=== PATIENT | female | born 1965 | race Caucasian/White ===

== ENCOUNTER → 2017-01-02 | Outpatient (CLI) | payer BC | END | disposition home or self-care (01) | LOC: C.PAPS 11:19 | PROVIDERS: ATTEND Obstetrics & Gynecology | DX: Z01.419 Encounter for gynecological examination (general) (routine) without abnormal findings (principal) ==

== ENCOUNTER → 2017-04-30 | Outpatient (CLI) | payer BC | END | disposition home or self-care (01) | LOC: C.PATHSPEC 16:33 | PROVIDERS: ATTEND Dermatology | DX: L98.9 Disorder of the skin and subcutaneous tissue, unspecified (principal) ==

== ENCOUNTER → 2018-02-12 | Outpatient (CLI) | payer OTHER | END | disposition home or self-care (01) | LOC: C.LABSPEC 16:37 | PROVIDERS: ATTEND Physician Assistant | DX: R39.9 Unspecified symptoms and signs involving the genitourinary system (principal) ==

== ENCOUNTER 2025-09-24 08:47 | Observation (INO) ==
--- NOTE | 2025-09-23 11:07 | Anesthesiology Consultation ---
Date of Service September 23, 2025 Assessment & Plan (1) Encounter for pre-operative examination: Infectious disease screening: Per assessment on 09/23/25- No known recent infectious disease contacts or current infectious disease symptoms. Chart Review Chart Review: Acceptable Risk for Surgery and Patient NOT seen in Pre Admission Testing History Surgery Operation Date: 09/24/25 10:00 Proposed Procedures p Laparoscopic Cholecystectomy - Curt Malloy DO, FACS Height/Weight Height: 5 ft 6.5 in Weight: 77.111 kg Allergies Allergy/AdvReac Type Severity Reaction Status Date / Time No Known Drug Allergies Allergy Verified 09/24/25 09:02 Medications Home Medications Medication Instructions Recorded Confirmed Last Taken cholecalciferol (vitamin D3) 25 1 cap PO BID 09/30/18 09/24/25 09/22/25 18:00 mcg (1,000 unit) capsule (Vitamin D3) magnesium oxide 420 mg tablet 840 mg PO DAILY 10/18/20 09/24/25 09/22/25 20:00 tamoxifen 20 mg tablet 20 mg PO DAILY 11/24/20 09/24/25 09/21/25 sumatriptan succinate 100 mg tablet 100 mg PO .TAKE 1 TABLET AT ONSET 12/18/23 09/24/25 09/22/25 20:00 OF MIGRAINE HEADACHE. MAY REPEAT IN 2 HOURS IF NEEDED. #10 tabs vitamin B complex 1 tab PO DAILY 02/26/24 09/24/25 Unknown venlafaxine 150 mg 150 mg PO DAILY #90 caps 01/06/25 09/24/25 09/21/25 08:00 capsule,extended release 24 hr clotrimazole-betamethasone 1 1 applic topical BID 2 weeks #45 02/16/25 09/24/25 Unknown %-0.05 % topical cream grams clonazepam 0.5 mg tablet (Klonopin) 0.5 mg PO DAILY PRN anxiety #30 06/17/25 09/24/25 09/23/25 21:00 tabs hydroxyzine HCl 25 mg tablet 25 mg PO HS PRN Sleep #30 tabs 06/17/25 09/24/25 09/21/25 ondansetron 4 mg disintegrating 4 mg PO Q6H PRN nausea and 09/20/25 09/24/25 09/23/25 10:00 tablet vomiting #10 tabs oxycodone 5 mg tablet 5 mg PO Q4H PRN pain #15 tabs 09/20/25 09/24/25 09/22/25 20:00 doxepin 25 mg capsule 25 mg PO .qhs PRN Sleep 09/23/25 09/24/25 Unknown acetaminophen 500 mg tablet 500 mg PO Q6H PRN Pain 09/24/25 09/24/25 09/23/25 08:00 ibuprofen 200 mg tablet 400 mg PO Q4 PRN Pain 09/24/25 09/24/25 09/23/25 08:00 oxycodone 5 mg tablet 5 - 10 mg (1 - 2 x 5 mg) PO 09/24/25 Unknown .[id number] PRN pain, for initial therapy, max 6 tabs per day #15 tabs Active Medications Generic Name Dose Route Start Last Admin Trade Name Freq PRN Reason Stop Dose Admin Lactated Ringer's 1,000 mls @ 15 mls/hr 09/24/25 06:00 09/24/25 09:29 Lr IV 09/25/25 05:59 15 mls/hr .Q24H HARRY Administration Past Medical History Medical History Acute calculous cholecystitis Reason for procedure 09/24/25 Anxiety Arachnoid cyst Incidentally found during head imaging; asymptomatic Atypical ductal hyperplasia of right breast 2020 - surgery only Bronchitis Depression Esophageal dysphagia Hiatal hernia Insomnia Low back pain Migraines Nausea and vomiting Reason for procedure 09/24/25 No blood products [employer] Nocturnal muscle cramps Overweight Temporomandibular joint disorder Clicking, only locked/painful 1x (probably 1 year ago while eating) per patient Upper abdominal pain Reason for procedure 09/24/25 Vestibular neuronitis Per records, patient denies Past Family History Family History Grandmother (Paternal) Family history of diabetes mellitus paternal Breast cancer Diabetes Father Family hx colonic polyps Hypertension Afib Uncle Prostate cancer Cancer Grandfather (Paternal) Heart disease Stroke Mother Jaw cancer Other No family history of adverse response to anesthesia Denies family history of Ovarian cancer Myocardial infarction Colorectal cancer Past Surgical History Surgical History H/O mastectomy (09/20/20) Right Breast Partial lumpectomy with Localization Using [employer] Marker Dr. Benitez 09/20/2020 H/O needle biopsy Hx of colonoscopy S/P breast biopsy Right [place] teeth removed Social History Smoking Status: Never smoker Do You Dip or Chew Tobacco: No Hx Alcohol Use: Yes Alcohol type: wine and hard liquor alcohol intake frequency: a few times a month Hx Substance Use: No substance use type: does not use Physical Exam Vital Signs Last Vital Signs Temp 37.6 C H 09/24/25 09:00 Pulse 108 H 09/24/25 09:00 Resp 18 09/24/25 09:00 BP 137/90 09/24/25 09:00 Pulse Ox 96 09/24/25 09:00 O2 Del Method Room Air 09/24/25 09:00 Lab Results Anesthesia Preop Results Results Anesthesia Widget: WBC 9.92 K/ul (4.8-10.8) 09/20/25 Hgb 12.3 g/dl (12.0-16.0) 09/20/25 Hct 36.3 % (37.0-47.0) L 09/20/25 Plt 207 K/uL (130-400) 09/20/25 Na 138 mmol/L (136-145) 09/20/25 K 3.7 mmol/L (3.5-5.1) 09/20/25 Cl 102 mmol/L (98-107) 09/20/25 CO2 27 mmol/L (21-32) 09/20/25 BUN 16 mg/dl (6-23) 09/20/25 Creat 0.87 mg/dl (0.6-1.2) 09/20/25 Glucose Level 118 mg/dl (70-99(Fasting)) H 09/20/25 Urine Color Yellow 09/20/25 Urine Appearance Turbid (Clear) A 09/20/25 Urine pH 8.5 (4.5-7.5) H 09/20/25 Urine Specific [place] 1.015 (1.000-1.030) 09/20/25 Urine Protein Negative (Negative) 09/20/25 Urine Glucose (UA) Negative (Negative) 09/20/25 Urine Ketones Trace (Negative) H 09/20/25 Urine Blood Trace (Negative) H 09/20/25 Urine Nitrite Negative (Negative) 09/20/25 Urine Bilirubin Negative (Negative) 09/20/25 Urine Urobilinogen Negative (Negative) 09/20/25 Urine Leukocyte Esterase Negative (Negative) 09/20/25 Urine WBC (Auto) 0-5 /hpf (0-5) 09/20/25 Urine RBC (Auto) 6-10 /hpf (0-2) H 09/20/25 Urine Hyaline Casts (Auto) 0-2 /lpf (0-2) 09/20/25 Urine Epithelial Cells (Auto) 0-2 /hpf (0-2) 09/20/25 Urine Bacteria (Auto) None Seen (None Seen) 09/20/25 Testing Electrocardiogram Date: 09/20/25 NSR at 94bpm. Prolonged QT. NS TWA. unconfirmed report. Other Testing Gallbladder ultrasound Date; 09/20/25 IMPRESSION: 1. Distended gallbladder with a few gallstones and small amount of gallbladder sludge without evidence of acute cholecystitis. 2. Likely small liver hemangioma. Follow-up liver ultrasound recommended in 6-12 months. Chest/Abdomen xray Date: 09/20/25 Impression: 1. Normal-appearing lungs 2. Constipation
[~2025-09-24 08:47] MED LIST: INDOCYANINE GREEN 25 MG VIAL INJ SCH
[2025-09-24] MEDS: LR 15ML/HR IV SCH (09:29)
[2025-09-24] MEDS ORDERED: FLUMAZENIL 0.1 MG/1 ML 10 ML VIAL IV PRN (09:47)
[2025-09-24] MEDS ORDERED: ATROPINE SULFATE 0.1 MG/ML 10ML SYR IV PRN (09:47)
[2025-09-24] MEDS ORDERED: PROMETHAZINE HCL 6.25 MG in SODIUM CHLORIDE 0.9% 50 ML IV PRN (09:47)
[2025-09-24] MEDS ORDERED: ONDANSETRON INJ 2 MG/ML 2 ML VIAL IV PRN ×2 (09:47→13:34)
[2025-09-24] MEDS ORDERED: NALOXONE HCL 0.4 MG/1 ML VIAL/CARP IV PRN (09:47)
--- NOTE | 2025-09-24 10:10 | History & Physical Bridge Note ---
Date of Service September 24, 2025 History & Physical Bridge Note I have examined the patient, reviewed the History & Physical and in the interval since the performance of the History & Physical I have noted the following changes of clinical significance: no changes noted
[2025-09-24] MEDS ORDERED: ROCURONIUM BROMIDE 10 MG/ML 5 ML VIAL IV ONE (10:13)
[2025-09-24] MEDS ORDERED: LIDOCAINE 2% 2 ML VIAL/AMP(20MG/ML) INFIL ONE (10:13)
[2025-09-24] MEDS ORDERED: ONDANSETRON INJ 2 MG/ML 2 ML VIAL ONE (10:13)
[2025-09-24] MEDS ORDERED: PROPOFOL IV EMULSION 10 MG/ML 20 ML VIAL IV ONE ×3 (10:13→10:23)
[2025-09-24] MEDS ORDERED: DEXAMETHASONE SOD INJ 4 MG/ML VIAL ONE (10:13)
[2025-09-24] MEDS ORDERED: MIDAZOLAM HCL 1 MG/ML 2ML VIAL ONE (10:14)
[2025-09-24] MEDS: cefOXitin 2,000 MG in DEXTROSE 5 % MINI-B 50 ML IV SCH (10:45)
[2025-09-24] MEDS ORDERED: diphenhydrAMINE 50 MG/ML VIAL ONE (10:55)
[2025-09-24] MEDS ORDERED: ACETAMINOPHEN 1000 MG/100 ML IV IV ONE (10:57)
[2025-09-24] MEDS: BUPIVACAINE 0.5 % 5 MG/1 ML MPF 30ML VIAL ONE (11:04)
[2025-09-24] MEDS ORDERED: KETOROLAC 30 MG/ML VIAL ONE (11:07)
[2025-09-24] MEDS ORDERED: SUGAMMADEX SODIUM 200 MG/2 ML VIAL IV ONE (11:07)
--- NOTE | 2025-09-24 11:40 | Operative Report ---
PG Post Operative Report Pre & Post Diagnosis Operation Date: 09/24/25 10:00 Pre-Op Diagnosis: Acute calculous cholecystitis Post-Op Diagnosis: Acute gangrenous calculous cholecystitis I identified the patient and participated in the time-out.: Yes Procedure Operation Date: 09/24/25 10:00 Actual Procedures p Laparoscopic Cholecystectomy(Not Applicable) - Curt Malloy DO, MARYAN Surgeon Curt Malloy DO, MARYAN Forest Ranger Technician Cait Oliveira Estimated Blood Loss 20 Findings Consistent with Post-Op Diagnosis Acute gangrenous cholecystitis. Gallbladder decompressed, omental adhesions taken down with blunt dissection. Critical view of safety obtained, cystic duct and artery doubly clipped and divided. Specimens Gallbladder Anesthesia Type General Complications none Disposition Accompanied Patient To Recovery: No Disposition: Recovery Room Indications 60-year-old female presented to the clinic with 5 days of right upper quadrant abdominal pain. Imaging on Saturday showed cholelithiasis without evidence of cholecystitis. Plan for laparoscopic cholecystectomy. The risks of the procedure were discussed, all questions were answered, and the patient agreed to proceed with surgery as planned. Description of Procedure The patient was properly identified, consented, and taken to the operating room where she was placed in the supine position. General endotracheal anesthesia was induced. SCDs and a safety belt were placed. Preoperative antibiotics were administered. The patient's abdomen was prepped and draped in the standard sterile fashion. A surgical timeout was performed and all parties were in agreement that this was the correct patient and procedure to be performed and we continued as planned. An incision was made superior and to the left of the umbilicus overlying the rectus muscle and the Veress needle was inserted. Saline drop test confirmed entry into the peritoneum. The abdomen was insufflated with carbon dioxide which the patient tolerated without incident. The abdomen was then entered using the Optiview technique and a 5 mm trocar. The laparoscope was inserted and no damage from initial trocar or Veress needle placement was noted, no gross abnormalities were noted within the 4 quadrants of the abdomen. An 11 mm port was placed in the subxiphoid position and two 5 mm ports were then placed in the right subcostal position. The patient was placed in reverse Trendelenburg position and rotated towards the left. The gallbladder was severely and acutely inflamed. It appeared gangrenous. There were dense omental adhesions to the gallbladder which were taken down with a combination of blunt dissection and electrocautery. The gallbladder was decompressed with the aspiration needle and revealed hydrops of the gallbladder. The dome of the gallbladder was retracted towards the left upper quadrant and the infundibulum was retracted toward the right lower quadrant revealing Calot's triangle. Peritoneal attachments were taken down with electrocautery and blunt dissection. The cystic duct and artery were circumferentially dissected. A window of safety was obtained showing the cystic duct entering the gallbladder with no aberrant structures noted. The cystic duct and artery were doubly clipped and divided. The gallbladder was then lifted off the gallbladder fossa with electrocautery. The gallbladder was placed in an Endo Catch bag and removed through the subxiphoid port site. The right upper quadrant was irrigated and hemostasis was found to be good. 5 mm trochars were removed under direct visualization and the abdomen was allowed to collapse. The subxiphoid port site fascia was closed with 0 Vicryl suture utilizing a Aristides-Luis device. The wound was irrigated, and the skin of all ports was closed with 4-0 Monocryl subcuticular sutures. Dermabond was placed over the wounds. The patient was extubated in the operating room and taken to the PACU where she recovered without apparent incident. All sponge, instrument and needle counts were correct at the conclusion of the procedure. The patient tolerated the procedure well. The physician's assistant editor was present and scrubbed for the entirety of the case and was essential in positioning the patient, prepping and draping, retraction and exposure, driving the laparoscope, removal of the gallbladder, closure the incisions, and placement of the dressings. I attest to the content of the Intraoperative Record and any orders documented therein. Any exceptions are noted below.
[2025-09-24] MEDS: HYDROmorphone INJ 1 MG/ML SYRINGE IV PRN (12:26)
--- NOTE | 2025-09-24 12:42 | Anesthesiology Progress Note ---
Date of Service September 24, 2025 Anesthesia Post Procedure Vital Signs Vital Signs: Temp Pulse Pulse Resp BP Pulse Ox O2 Del Method 09/24/25 12:30 104 H 12 134/87 96 Nasal Cannula 09/24/25 12:20 37.5 C 107 H 14 139/87 94 Room Air 09/24/25 12:10 108 H 10 L 143/91 H 100 Oxymask 09/24/25 12:00 109 H 18 147/86 H 100 Oxymask 09/24/25 11:54 37.0 C 113 H 10 L 147/87 H 99 Oxymask 09/24/25 09:00 37.6 C H 108 H 18 137/90 96 Room Air O2 Flow Rate 09/24/25 12:30 2 09/24/25 12:20 09/24/25 12:10 4 09/24/25 12:00 6 09/24/25 11:54 6 09/24/25 09:00 Pain Intensity Right Abdomen: Pain Intensity: 6 Abdomen: Pain Intensity: 5 Transfer of Care Handoff Completed per policy Notes Mental Status: alert / awake / arousable Patient Amnestic to Procedure: Yes Nausea / Vomiting: adequately controlled Pain: adequately controlled Airway Patency, RR, SpO2: stable & adequate BP & HR: stable & adequate Hydration State: stable & adequate Anesthetic Complications: no major complications apparent
[2025-09-24] MEDS ORDERED: MoRPHine SULFATE 4 MG/ML 1 ML CARP\\VIAL IV PRN (13:34)
[2025-09-24] MEDS ORDERED: clonazePAM 0.5 MG TAB PO PRN (13:34)
[2025-09-24] MEDS ORDERED: DOXEPIN HCL 25 MG CAPSULE PO PRN (13:34)
[2025-09-24] MEDS: FAMOTIDINE/PF 20 MG/2 ML VIAL IV ONE (13:38)
[2025-09-24] MEDS: LACTATED RINGER'S 1,000 ML IV SCH (14:12)
[2025-09-24] MEDS: MoRPHine SULFATE 4 MG/ML 1 ML CARP\\VIAL IV PRN (14:22)
[2025-09-24] MEDS: PIPERACILLIN/TAZOBACTAM 4.5 GM/100 ML BAG IV SCH (14:26)
[2025-09-24] MEDS: ACETAMINOPHEN 1,000 MG/100 ML VIAL IV SCH (18:15)
[2025-09-24] MEDS: clonazePAM 1 MG TAB PO PRN (21:14)
[2025-09-24] MEDS: CLOTRIMAZOLE/BETAMETHASONE CR 15 GM TUBE EXT SCH (21:16)
[2025-09-25] MEDS: KETOROLAC TROMETHAMINE 15 MG/ML VIAL IV PRN (00:02)
[2025-09-25 05:40] VITALS: RESP 16
[2025-09-25 07:00] LABS: Hematocrit (blood only) 27.7 % (37.0-47.0); Hemoglobin 9.2 g/dL (12.0-16.0); Immature Granulocytes # (auto) 0.04 K/uL (0.01-0.20); Immature Granulocytes % (auto) 0.5 %; Mean Corpuscular Hemoglobin 29.0 pg (25.0-34.0); Mean Corpuscular Volume 87.4 fL (80.0-100.0); Platelet Count 130 K/uL (130-400); RDW Standard Deviation 43.8 fL (36.4-46.3); Red Blood Count 3.17 M/uL (4.20-5.40); White Blood Count 7.95 K/ul (4.8-10.8)
[2025-09-25] MEDS: VENLAFAXINE HCL XR 150 MG CAPXR PO SCH (07:44)
[2025-09-25 07:54] LABS: Albumin Level 3.0 gm/dl (3.4-5.0); Anion Gap 8.0 (3-11); Bilirubin,Total 0.3 mg/dl (0.2-1.0); Calcium 8.1 mg/dl (8.6-10.3); Carbon Dioxide 26.0 mmol/L (21-32); Chloride 100.0 mmol/L (98-107); Potassium 3.5 mmol/L (3.5-5.1); Sodium 134.0 mmol/L (136-145)
[2025-09-25 08:00] LABS: Alanine Aminotransferase 9.0 U/L (7-52); Albumin Globulin Ratio 1.2 (0.9-2); Alkaline Phosphatase 62.0 U/L (34-104); Blood Urea Nitrogen 14.0 mg/dl (6-23); Creatinine Clr Calc Pharmacy 67.3 ml/min; Globulin 2.6 gm/dl (2.5-4.0); Glucose 124.0 mg/dl (70-99(Fasting)); Total Protein 5.6 gm/dl (6.0-8.3)
[2025-09-25 08:16] VITALS: BP 107/72; PULSE 71; TEMP 97.8; O2SAT 97
--- NOTE | 2025-09-25 11:54 | Surgery Progress Note ---
Date of Service September 25, 2025 Assessment & Plan (1) Status post laparoscopic cholecystectomy: Plan: POD #1 laparoscopic cholecystectomy for gangrenous cholecystitis, doing well Advance diet, discharge to home Discharge home 1 week antibiotics Wound care instructions and activity restrictions reviewed Acetaminophen and/or NSAIDs as needed pain, oxycodone for breakthrough pain Return precautions given, call with questions or concerns Follow-up with me in 2 weeks to schedule Admission and Anticipated Discharge Date Admission Date: September 24, 2025 Subjective POD #1 laparoscopic cholecystectomy for gangrenous cholecystitis. Overall doing well, feels much better than prior to surgery. Still sore in her right upper quadrant. Physical Exam Constitutional: WD/WN, vitals as above Gastrointestinal (Abdomen): Inspection/Auscultation: + abdominal surgical incision (Mild ecchymosis, no infection) Percussion/Palpation: + abdomen tender (Appropriately tender to palpation) and abdomen soft; no guarding and abdomen not rigid Results & Data Vital Signs (Past 12 Hours) Vital Signs Temp Pulse Resp BP Pulse Ox O2 Del Method 09/25/25 07:51 36.6 C 71 16 107/72 97 Room Air 09/25/25 07:40 36.6 C 68 16 102/67 95 Room Air 09/25/25 05:38 36.5 C 73 16 104/67 95 Room Air 09/25/25 01:41 36.6 C 62 15 91/57 L 96 Room Air Laboratory Results Laboratory Results - last 24 hr 09/25/25 06:18 WBC 7.95 RBC 3.17 L Hgb 9.2 L Hct 27.7 L MCV 87.4 MCH 29.0 MCHC 33.2 RDW Std Deviation 43.8 RDW Coeff of [place]ita 13.7 Plt Count 130 MPV 11.2 Immature Gran % (Auto) 0.5 Neut % (Auto) 80.1 Lymph % (Auto) 10.2 [place] % (Auto) 9.1 Eos % (Auto) 0.0 Baso % (Auto) 0.1 Neut # (Auto) 6.37 Lymph # (Auto) 0.81 L [place] # (Auto) 0.72 H Eos # (Auto) 0.00 Baso # (Auto) 0.01 Immature Gran # (Auto) 0.04 Sodium 134 L Potassium 3.5 Chloride 100 Carbon Dioxide 26 Anion Gap 8 BUN 14 Creatinine 0.96 Est Cr Clr Drug Dosing 67.3 eGFR 68.58 BUN/Creatinine Ratio 14.6 Glucose 124 H Calcium 8.1 L Total Bilirubin 0.3 AST 18 ALT 9 Alkaline Phosphatase 62 Total Protein 5.6 L Albumin 3.0 L Globulin 2.6 Albumin/Globulin Ratio 1.2 PG Care Time/CCT Total # of Minutes Spent Total Time Spent with Patient: Total time spent is greater than 50% in coordination of care (as documented) at patient's floor/unit and/or counseling patient: Coding Level of Care Code 26360 Post Operative Follow-Up Diagnoses Status post laparoscopic cholecystectomy Z90.49
== END 2025-09-25 14:14 | disposition home or self-care (01) ==
LOC: ASU 08:47 → 3W 08:47